=== PATIENT | male | born 1935 | race Caucasian/White ===

== ENCOUNTER 2023-03-25 18:12 | Emergency (ER) | payer OTHER ==
[2023-03-25 18:26] VITALS: TEMP 97.5
--- NOTE | 2023-03-25 19:02 | ERPHSYRPT ---
- History of Present Illness Time Seen by Provider: 03/25/23 18:59 Source: patient Exam Limitations: no limitations Patient Subjective Stated Complaint: Pt states "I have been vomiting for the past couple of days. I was walking to bed and my knees gave out and I went down. " Triage Nursing Assessment: PT presented alert and oriented X 3, skin pwd. Pt able to speak in full complete sentences. PT resting on bed without difficulties. Pt has vomitous on his shirt. Physician History: Patient is an 88-year-old male presents to our ED for evaluation of generalized weakness. Patient is currently experiencing head neck cancer. Patient unable to open his mouth. Therefore patient unable to eat. Patient reports nausea and vomiting at home. Patient states because of this he has been progressively becoming weak. Patient lives alone. Today patient was ambulating to his restroom and fell. No injuries. No BHT or LOC. Patient is not on blood thinners. No neck pain. Cervical spine cleared clinically. Patient otherwise feels well. [facility] have performed what sounds like debulking surgery twice on this head mass. He is requesting transfer as he believes he needs another debulking procedure. Patient otherwise voices no other complaints or concerns at this time. Portions of this note were created with voice recognition technology. There may be grammatical, spelling, punctuation or sound alike errors Timing/Duration: day(s) Severity: moderate (2 days) Modifying Factors: Improves With: nothing Associated Symptoms: denies symptoms Allergies/Adverse Reactions: No Known Drug Allergies Allergy (Verified 03/25/23 18:25) Home Medications: Donepezil HCl 10 mg PO DAILY 03/25/23 [History] Gabapentin 600 mg PO BID 03/25/23 [History] Metoprolol Succinate [Toprol Xl] 50 mg PO DAILY 03/25/23 [History] Sertraline HCl 50 mg [Zoloft 50 mg Tablet] 50 mg PO DAILY 03/25/23 [History] lisinopriL [Lisinopril] 40 mg PO DAILY 03/25/23 [History] Hx Tetanus, Diphtheria Vaccination/Date Given: No Hx Influenza Vaccination/Date Given: No Hx Pneumococcal Vaccination/Date Given: No Immunizations Up to Date: No Travel Risk - International Travel Have you traveled outside of the country in past 3 weeks: No - Coronavirus Screening Are you exhibiting any of the following symptoms?: No Close contact with a COVID-19 positive Pt in past 14-21 Days: No - Vaccine Status Have you recieved a Covid-19 vaccination: No - Review of Systems Constitutional: No Symptoms, No Fever, No Chills Eyes: No Symptoms Ears, Nose, & Throat: No Symptoms Respiratory: No Symptoms, No Cough, No Dyspnea Cardiac: No Symptoms, No Chest Pain, No Edema, No Syncope Abdominal/Gastrointestinal: No Symptoms, No Abdominal Pain, No Nausea, No Vomiting, No Diarrhea Genitourinary Symptoms: No Symptoms, No Dysuria Musculoskeletal: No Symptoms, No Back Pain, No Neck Pain Skin: No Symptoms, No Rash Neurological: No Symptoms, No Dizziness, No Focal Weakness, No Sensory Changes Psychological: No Symptoms Endocrine: No Symptoms Hematologic/Lymphatic: No Symptoms Immunological/Allergic: No Symptoms All Other Systems: Reviewed and Negative - Past Medical History Pertinent Past Medical History: Yes Neurological History: No Pertinent History ENT History: Glaucoma Cardiac History: No Pertinent History Respiratory History: No Pertinent History Endocrine Medical History: No Pertinent History Musculoskeletal History: No Pertinent History GI Medical History: No Pertinent History History: No Pertinent History Psycho-Social History: No Pertinent History Male Reproductive Disorders: No Pertinent History Other Medical History: mass on face left cheek - Past Surgical History Past Surgical History: Yes Other Surgical History: facial biopsy - Social History Smoking Status: Former smoker Exposure to second hand smoke: No Drug Use: none Patient Lives Alone: Yes - Nursing Vital Signs Nursing Vital Signs: Initial Vital Signs Temperature 97.5 F 03/25/23 18:14 Pulse Rate 74 03/25/23 18:14 Respiratory Rate 20 03/25/23 18:14 Blood Pressure 129/67 03/25/23 18:14 O2 Sat by Pulse Oximetry 96 03/25/23 18:14 Pain Scale Pain Intensity 2 - Physical Exam General Appearance: no apparent distress, alert Eye Exam: PERRL/EOMI, eyes nml inspection Ears, Nose, Throat Exam: normal ENT inspection, TMs normal, pharynx normal, moist mucous membranes Neck Exam: normal inspection, non-tender, supple, full range of motion Respiratory Exam: normal breath sounds, lungs clear, No respiratory distress Cardiovascular Exam: regular rate/rhythm, normal heart sounds, normal peripheral pulses Gastrointestinal/Abdomen Exam: soft, normal bowel sounds, No tenderness, No mass Back Exam: normal inspection, normal range of motion, No CVA tenderness, No vertebral tenderness Extremity Exam: normal inspection, normal range of motion, pelvis stable Neurologic Exam: alert, oriented x 3, cooperative, normal mood/affect, nml cerebellar function, nml station & gait, sensation nml, No motor deficits Skin Exam: normal color, warm, dry, No rash Lymphatic Exam: No adenopathy SpO2: 96 - Course Nursing assessment & vital signs reviewed: Yes EKG Interpreted by Me: RATE ([id number]), Sinus Rhythm, Left [place] Deviation, prolonged QT interval Ordered Tests: Active Orders 24 hr Category Date Time Status IV Insertion STAT Care 03/25/23 19:04 Active Pulse Oximetry (ED) STAT Care 03/25/23 19:04 Active Telemetry q4h Care 03/25/23 20:48 Ordered CBC W DIFF Stat Lab 03/25/23 19:25 Completed CMP Stat Lab 03/25/23 19:25 Completed MAGNESIUM Stat Lab 03/25/23 19:25 Completed TROPONIN Q4H Lab 03/25/23 19:25 Completed TROPONIN Q4H Lab 03/25/23 23:15 Ordered TROPONIN Q4H Lab 03/26/23 03:15 Ordered UA W/RFX UR CULTURE Stat Lab 03/25/23 19:04 Ordered Medication Summary Generic Name Dose Route Start Last Admin Trade Name Freq PRN Reason Stop Dose Admin Sodium Chloride 1,000 mls @ 50 mls/hr 03/25/23 19:15 03/25/23 19:13 Sodium Chloride 0.9% 1000 Ml IV 04/24/23 19:14 50 mls/hr .Q20H DYLLAN Administration Potassium Chloride 20 meq in 100 mls @ 50 mls/hr 03/25/23 21:00 Potassium Chloride 20 Meq In Water 100ml IV 03/26/23 00:59 Q2H DYLLAN Magnesium Sulfate/Dextrose 100 mls @ 100 mls/hr 03/25/23 21:00 Magnesium 1 Gm / 100 Ml D5w IV 03/25/23 22:59 Q1H DYLLAN Lab/Rad Data: Laboratory Result Diagrams 03/25/23 19:25 03/25/23 19:25 Laboratory Results 03/25/23 03/25/23 03/25/23 Range/Units 19:30 19:25 19:25 WBC 19.8 H (4.0-10.5) x10^3/uL RBC 4.17 (4.1-5.6) x10^6/uL Hgb 12.9 (12.5-18.0) g/dL Hct 39.0 L (42-50) % MCV 93.5 (78-100) fL MCH 30.9 (26-32) pg MCHC 33.1 (32-36) g/dL RDW 17.1 H (11.5-14.0) % Plt Count 489 H (150-450) x10^3/uL MPV 8.4 (7.5-11.0) fL Gran % 82.0 H (36.0-66.0) % Immature Gran % (Auto) 1.2 H (0.00-0.4) % Nucleat RBC Rel Count 0.0 (0.00-0.1) % Eos # (Auto) 0.02 (0-0.5) x10^3/uL Immature Gran # (Auto) 0.24 H (0.00-0.03) x10^3u/L Absolute Lymphs (auto) 1.73 (1.0-4.6) x10^3/uL Absolute Monos (auto) 1.49 H (0.0-1.3) x10^3/uL Absolute Nucleated RBC 0.00 (0.00-0.01) x10^3u/L Lymphocytes % 8.8 L (24.0-44.0) % Monocytes % 7.5 (0.0-12.0) % Eosinophils % 0.1 (0.00-5.0) % Basophils % 0.4 (0.0-0.4) % Absolute Granulocytes 16.20 H (1.4-6.9) x10^3/uL Basophils # 0.07 (0-0.4) x10^3/uL Sodium 135 L (137-145) mmol/L Potassium 2.9 L* (3.5-5.1) mmol/L Chloride 91 L (98-107) mmol/L Carbon Dioxide 34 H (22-30) mmol/L Anion Gap 13.9 (5-15) MEQ/L BUN 18 (9-20) mg/dL Creatinine 1.01 (0.66-1.25) mg/dL Estimated GFR > 60.0 ML/MIN Glucose 113 H (74-106) mg/dL Calcium 8.8 (8.4-10.2) mg/dL Magnesium 1.8 (1.6-2.3) mg/dL Total Bilirubin 0.70 (0.2-1.3) mg/dL AST 47 (17-59) U/L ALT 23 (0-50) U/L Alkaline Phosphatase 116 (38-126) U/L Troponin I 0.062 H* (0.000-0.034) ng/mL Serum Total Protein 6.8 (6.3-8.2) g/dL Albumin 3.5 (3.5-5.0) g/dL Influenza Type A Ag NEGATIVE (NEGATIVE) Influenza Type B Ag NEGATIVE (NEGATIVE) RSV (PCR) NEGATIVE (NEGATIVE) SARS-CoV-2 (PCR) NEGATIVE (NEGATIVE) - Progress Progress: improved Progress Note: 03/25/23 19:31 Dr. Serrato, hospitalist accepts transfer to [facility] at 7:30 PM. 03/25/23 20:55 Patient is a 88-year-old male presents to our ED for evaluation of generalized weakness and a fall. Patient states he has been unable to eat due to swelling of the left side of his face. Patient also reports vomiting. Test ordered include CBC CMP COVID test. Magnesium level ordered troponin UA. CBC reveals a thrombocytosis and a leukocytosis. Thrombocytosis 49. Leukocytosis of 19.8. CMP reveals a potassium of 2.9. COVID test negative. Mag level is 1.8. Troponin elevated at 0.062. Patient has no chest pain. Urinalysis pending. Patient received magnesium sulfate and K rider potassium. IV fluids administered as well. EKG shows diffuse ST segment depression. We will monitor the troponin. Patient has no chest pain. We are currently contacting hospitalist at the [facility] to give him an update on the critical lab findings. Portions of this note were created with voice recognition technology. There may be grammatical, spelling, punctuation or sound alike errors Complexity of problems addressed is moderate acute complicated.. No critical care time Complexity of data reviewed and analyzed is extensive. Test ordered. Test reviewed. Test analyzed. Clinical correlation made between our work-up findings and history and physical examination. Case and management discussed with Dr. Serrato hospitalist at the [facility] who accepts transfer. Risk complication and or risk morbidity/mortality patient management is high. Patient will require transfer to higher level of care. Patient will be transferred to the [facility] in [place] Patient agrees to transfer to [facility]. Vital stable. Plan of care established for shared decision making. Time spent to transfer patient is approximately 15 minutes. Portions of this note were created with voice recognition technology. There may be grammatical, spelling, punctuation or sound alike errors 03/25/23 20:55 Counseled pt/family regarding: lab results, diagnosis, need for follow-up - Departure Departure Disposition: Transfer Clinical Impression: Leukocytosis, Thrombocytosis, Hypokalemia, Elevated troponin, Abnormal EKG, Vomiting Condition: Stable Critical Care Time: No Referrals: [facility],'[facility] [Primary Care Provider] - Follow up/PCP as directed
[2023-03-25] MEDS ORDERED: Sodium Chloride 0.9% 1000 ML 1,000 ML ONE (19:12)
[2023-03-25] MEDS ORDERED: Sodium Chloride 0.9% 1000 ML 1,000 ML IV SCH (19:15)
[2023-03-25 20:01] LABS: BASOPHIL % 0.4 % (0.0-0.4); Basophil (Absolute #) 0.07 x10^3/uL (0-0.4); Eosinophil % 0.1 % (0.00-5.0); Eosinophil (Absolute #) 0.02 x10^3/uL (0-0.5); Hemoglobin 12.9 g/dL (12.5-18.0); IMMATURE GRAN # 0.24 x10^3u/L (0.00-0.03); IMMATURE GRAN % 1.2 % (0.00-0.4); Lymphocyte (Absolute #) 1.73 x10^3/uL (1.0-4.6); Lymphocytes % 8.8 % (24.0-44.0); Mean Cell Volume 93.5 fL (78-100); Mean Corpuscular Hemoglobin 30.9 pg (26-32); Mean Corpuscular Hgb Concent. 33.1 g/dL (32-36); Mean Platelet Volume 8.4 fL (7.5-11.0); Monocyte (Absolute #) 1.49 x10^3/uL (0.0-1.3); Monocytes % 7.5 % (0.0-12.0); Platelet Count 489 x10^3/uL (150-450); Red Blood Count 4.17 x10^6/uL (4.1-5.6); Red Cell Distribution Width 17.1 % (11.5-14.0); White Blood Count 19.8 x10^3/uL (4.0-10.5)
[2023-03-25 20:18] LABS: INFLUENZA A NEGATIVE (NEGATIVE); INFLUENZA B NEGATIVE (NEGATIVE); RESPIRATORY SYNCTIAL VIRUS NEGATIVE (NEGATIVE); SARS-CoV-2 Xpert Express NEGATIVE (NEGATIVE)
[2023-03-25 20:40] LABS: ALBUMIN 3.5 g/dL (3.5-5.0); ALKALINE PHOSPHATASE 116 U/L (38-126); ANION GAP 13.9 MEQ/L (5-15); BLOOD UREA NITROGEN 18 mg/dL (9-20); CHLORIDE 91 mmol/L (98-107); Calcium 8.8 mg/dL (8.4-10.2); Carbon Dioxide 34 mmol/L (22-30); Creatinine 1 1.01 mg/dL (0.66-1.25); EST GLOMERULAR FILTRATION RATE > 60.0 ML/MIN; Glucose 113 mg/dL (74-106); MAGNESIUM 1.8 mg/dL (1.6-2.3); SGOT/AST 47 U/L (17-59); SGPT/ALT 23 U/L (0-50); SODIUM 135 mmol/L (137-145); Total Protein 6.8 g/dL (6.3-8.2)
[2023-03-25 20:42] LABS: Potassium 2.9 mmol/L (3.5-5.1); TROPONIN 0.062 ng/mL (0.000-0.034)
[2023-03-25] MEDS ORDERED: POTASSIUM CHLORIDE 20 mEq IN WATER 100ML 20 MEQ/100 ML BAG IV SCH (21:00)
[2023-03-25] MEDS ORDERED: Magnesium 1 Gm / 100 Ml D5W*** 100 ML IV ONE ×2 (21:32→22:37)
[2023-03-25] MEDS: Magnesium 1 Gm / 100 Ml D5W*** 100 ML IV SCH ×2 (21:36→22:38)
[2023-03-25] MEDS ORDERED: POTASSIUM CHLORIDE 20 mEq IN WATER 100ML 100 ML IV ONE (22:38)
[2023-03-25] MEDS ORDERED: ENOXAPARIN SODIUM SQ ONE ×2 (23:31→23:35)
[2023-03-25] MEDS ORDERED: MORPHINE SULFATE 4 MG INJ IV ONE (23:33)
[2023-03-25] MEDS ORDERED: MORPHINE SULFATE 4 MG INJ ONE (23:35)
[2023-03-25 23:48] VITALS: BP 142/75; PULSE 102; RESP 15; O2SAT 98
[2023-03-26 01:37] LABS: ADD URINE CULTURE? YES (NO); Appearance Cloudy (Clear); Bacteria None Seen /HPF (None Seen); Bilirubin Negative (Negative); Blood Large (Negative); Epithelial Cells Moderate /HPF (None Seen); Glucose, Urine 100 mg/dL (Negative); Ketones Trace (Negative); Leukocyte Esterase Trace (Negative); Nitrite Negative (Negative); Protein,Urine Dip 100 (Negative); RBC >100 /HPF (0-5); Specific Gravity 1.025 (1.005-1.030); Urobilinogen 0.2 mg/dL (0.2)
== END 2023-03-25 23:45 | disposition short-term general hospital (02) ==
LOC: ED 18:12
DX: D72.829 Elevated white blood cell count, unspecified (principal); D75.839 Thrombocytosis, unspecified; E87.6 Hypokalemia; R77.8 Other specified abnormalities of plasma proteins; R94.31 Abnormal electrocardiogram [ECG] [EKG]; R11.2 Nausea with vomiting, unspecified; R53.1 Weakness; Z79.899 Other long term (current) drug therapy; Z28.310 Unvaccinated for COVID-19; Z20.828 Contact with and (suspected) exposure to other viral communicable diseases
CPT/HCPCS: 0241U; 36000; 36415; 80053; 81001; 83735; 84484; 85025; 87086; 93041; 94760; 96360; 96365; 96372; 96374; 99285; 96375; J1650; J2270; J3475; J3480